=== PATIENT | male | born 1950 | race Caucasian/White ===

== ENCOUNTER 2018-03-04 11:30 | Inpatient (IN) | payer BC, MEDICARE ==
[~2018-03-04] VITALS: Ht 182.9 cm; Wt 110.7 kg
[2018-03-04 11:51] LABS: BASOPHILS # (AUTO) 0.03 x10^3/uL (0-0.1); BASOPHILS % (AUTO) 0 % (0-1); EOSINOPHILS # (AUTO) 0.08 x10^3/uL (0-0.4); EOSINOPHILS % (AUTO) 1 % (1-7); HCT (SEDRATE) 44.9 % (39.2-51.8); LYMPHOCYTES # (AUTO) 2.33 x10^3/uL (1-3.4); LYMPHOCYTES % (AUTO) 30 % (22-44); MD NO; MEAN CORPUSCULAR HEMOGLOBIN 30.2 pg (27.5-34.5); MEAN CORPUSCULAR HGB CONC 33.5 g/dL (33.2-36.2); MEAN CORPUSCULAR VOLUME 89.9 fL (81-97); MONOCYTES # (AUTO) 0.56 x10^3/uL (0.2-0.8); MONOCYTES % (AUTO) 7 % (2-9); NEUTROPHILS # (AUTO) 4.78 x10^3/uL (1.8-6.8); NEUTROPHILS % (AUTO) 61 % (42-75); PLATELET COUNT 198 x10^3/uL (130-400); RED BLOOD COUNT 5.06 x10^6/uL (4.38-5.82); RED CELL DISTRIBUTION WIDTH 12.9 % (9.4-14.8)
[2018-03-04 11:55] LABS: MICROSCOPIC NOT IND
[2018-03-04 12:17] LABS: ANION GAP 6 mmol/L (5-15); CALCIUM 8.9 mg/dL (8.5-10.1); CHLORIDE 111 mmol/L (98-107); CREATININE 1.31 mg/dL (0.7-1.3)
[2018-03-04 12:48] LABS: INTERNATIONAL NORMALIZED RATIO 0.99 (0.93-1.1); PROTHROMBIN TIME 10.3 Seconds (9.6-11.5)
[2018-03-07] MEDS ORDERED: LACTATED RINGERS 1,000 ML IV SCH (06:52)
[2018-03-07] MEDS ORDERED: FAMOTIDINE 20 MG TABLET PO ONE (07:30)
[2018-03-07] MEDS ORDERED: DIAZEPAM 5 MG TABLET PO ONE (07:30)
[2018-03-07] MEDS ORDERED: METOCLOPRAMIDE 10MG TABLET PO ONE (07:30)
[2018-03-07] MEDS ORDERED: GABAPENTIN 300 MG CAPSULE PO ONE (07:30)
[2018-03-07] MEDS ORDERED: TAMSULOSIN 0.4 MG CAP.ER.24H PO ONE (07:30)
[2018-03-07] MEDS ORDERED: FENTANYL PF 250 MCG/5ML ONE (08:16)
[2018-03-07] MEDS ORDERED: PROPOFOL 100 ML ONE ×2 (08:17→10:37)
[2018-03-07] MEDS ORDERED: SUFentanil 50 MCG/ML, 2ML ONE (08:17)
[2018-03-07] MEDS ORDERED: BUPIVACAINE/PF-EPI 0.5% 1:200K ONE (09:00)
[2018-03-07] MEDS ORDERED: VANCOMYCIN 1,000 MG ONE (09:00)
[2018-03-07] MEDS ORDERED: THROMBIN 20,000 UNIT VIAL TP ONE (09:00)
[2018-03-07] MEDS ORDERED: TRANEXAMIC ACID 100 MG/ML, 10ML ONE ×2 (09:00)
[2018-03-07] MEDS ORDERED: BACITRACIN 50,000 UNIT ONE (09:00)
[2018-03-07] MEDS ORDERED: KETAMINE 10 MG/ML, 20ML ONE (09:07)
[2018-03-07] MEDS ORDERED: SUFentanil 50 MCG/ML, 5ML ONE (09:07)
[2018-03-07] MEDS ORDERED: ROCURONIUM 10 MG/ML,10ML ONE (09:17)
[2018-03-07] MEDS ORDERED: LIDOCAINE-MPF 2% ,5ML ONE (09:17)
[2018-03-07] MEDS ORDERED: SUCCINYLCHOLINE 20 MG/ML, 10ML ONE (09:17)
[2018-03-07] MEDS ORDERED: DEXAMETHASONE 4 MG/ML, 1ML ONE (09:17)
[2018-03-07] MEDS ORDERED: CEFAZOLIN 1,000 MG ONE (09:17)
[2018-03-07] MEDS ORDERED: PROPOFOL 50 ML ONE ×3 (11:32→12:43)
[2018-03-07] MEDS: GLYCOPYRROLATE 0.2MG/1ML, 5ML IVPush PRN ×2 (13:51→13:55)
[2018-03-07] MEDS ORDERED: EPHEDRINE 50 MG/ML, 1ML ONE (13:59)
[2018-03-07] MEDS ORDERED: HYDROmorphone 1 MG/ML, 1ML IV PRN (14:00)
[2018-03-07] MEDS ORDERED: DIAZEPAM 5 MG/ML, 2ML IVPush PRN (14:00)
[2018-03-07] MEDS ORDERED: EPHEDRINE 50 MG/ML, 1ML IVPush PRN (14:00)
[2018-03-07] MEDS ORDERED: MORPHINE SULFATE 4 MG/ML, 1ML IVPush PRN (14:00)
[2018-03-07] MEDS ORDERED: ONDANSETRON 2MG/ML, 2ML IV PRN ×3 (14:00→17:30)
[2018-03-07] MEDS ORDERED: OXYcodone 5 MG/5 ML ORAL.SOL UDC PO PRN ×2 (14:00)
[2018-03-07] MEDS ORDERED: FENTANYL PF 100 MCG/2ML IV PRN ×2 (14:00)
[2018-03-07] MEDS ORDERED: PROMETHAZINE 25 MG/ML, 1ML IV PRN (14:00)
[2018-03-07] MEDS ORDERED: LABETALOL 5MG/ML, 20ML IV PRN ×2 (14:00→17:30)
[2018-03-07] MEDS ORDERED: ALBUTEROL SULFATE 2.5 MG/3 ML NPPB PRN (14:00)
[2018-03-07] MEDS ORDERED: OXYcodone 5 MG/5 ML ORAL.SOL UDC ONE (15:29)
[2018-03-07] MEDS ORDERED: FENTANYL PF 100 MCG/2ML ONE (15:42)
[2018-03-07] MEDS ORDERED: GLYCOPYRROLATE 0.4 MG/2 ML, 2ML ONE (15:42)
[2018-03-07] MEDS ORDERED: PROMETHAZINE 25 MG/ML, 1ML IM PRN (17:30)
[2018-03-07] MEDS ORDERED: DIAZEPAM 5 MG/ML, 2ML IV PRN (17:30)
[2018-03-07] MEDS ORDERED: DIPHENHYDRAMINE 50 MG/ML, 1ML IM PRN (17:30)
[2018-03-07] MEDS ORDERED: OXYcodone ORAL.CONC 20 MG/ML PO PRN (17:30)
[2018-03-07] MEDS ORDERED: BISACODYL 10 MG SUPP PR PRN (17:30)
[2018-03-07] MEDS ORDERED: DIPHENHYDRAMINE 50 MG CAPSULE PO PRN (17:30)
[2018-03-07] MEDS ORDERED: DIPHENHYDRAMINE 50 MG/ML, 1ML IVPush PRN (17:30)
[2018-03-07] MEDS ORDERED: morphine SULFATE 10 MG/ML, 1ML IV PRN (17:30)
[2018-03-07] MEDS ORDERED: LORazepam 1MG TABLET PO PRN (17:30)
[2018-03-07] MEDS ORDERED: MAGNESIUM HYDROXIDE 8%, 30ML UDC PO PRN (17:30)
[2018-03-07] MEDS ORDERED: SODIUM CHLORIDE 0.9% 1,000 ML IV PRN (17:30)
[2018-03-07] MEDS ORDERED: METHOCARBAMOL 1,000 MG in DEXTROSE 5% 100 ML IV ONE (18:00)
[2018-03-07 19:40] VITALS: BP 125/71
[2018-03-07] MEDS: D5%-0.9% NACL+KCL 20MEQ 1,000 ML IV SCH (20:09)
[2018-03-07] MEDS: CEFAZOLIN PMX 1GM/50ML 50 ML IVPB SCH (20:09)
[2018-03-07] MEDS ORDERED: ZOLPIDEM 5MG TABLET PO PRN (21:00)
[2018-03-08] VITALS (7 sets, daily range): BP systolic 103–133; BP diastolic 53–65
[2018-03-08] MEDS: CEFAZOLIN PMX 1GM/50ML 50 ML IVPB SCH (04:40)
[2018-03-08] MEDS: OXYcodone IR 5MG TABLET PO PRN ×4 (05:10→17:10)
[2018-03-08 05:33] LABS: BASOPHILS # (AUTO) 0.01 x10^3/uL (0-0.1); BASOPHILS % (AUTO) 0 % (0-1); EOSINOPHILS % (AUTO) 0 % (1-7); LYMPHOCYTES # (AUTO) 1.08 x10^3/uL (1-3.4); LYMPHOCYTES % (AUTO) 8 % (22-44); MD NO; MEAN CORPUSCULAR HEMOGLOBIN 30.3 pg (27.5-34.5); MEAN CORPUSCULAR VOLUME 89.1 fL (81-97); MEAN PLATELET VOLUME 8.4 fL (7.4-10.4); MONOCYTES # (AUTO) 0.69 x10^3/uL (0.2-0.8); MONOCYTES % (AUTO) 5 % (2-9); NEUTROPHILS # (AUTO) 12.09 x10^3/uL (1.8-6.8); NEUTROPHILS % (AUTO) 87 % (42-75); PLATELET COUNT 180 x10^3/uL (130-400); RED CELL DISTRIBUTION WIDTH 12.2 % (9.4-14.8)
[2018-03-08] MEDS: D5%-0.9% NACL+KCL 20MEQ 1,000 ML IV SCH ×2 (06:42→16:00)
[2018-03-08] MEDS: METHOCARBAMOL 750 MG in DEXTROSE 5% 100 ML IV SCH ×3 (06:42→23:12)
[2018-03-08] MEDS: SENNA/DOCUSATE TABLET PO SCH (09:37)
[2018-03-08] MEDS ORDERED: CALCIUM CARBONATE 500 MG HOMEMEDPO PRN (11:30)
[2018-03-08] MEDS: DEXAMETHASONE 4 MG/ML, 1ML IV PRN (19:12)
[2018-03-08] MEDS: DIAZEPAM 5 MG TABLET PO PRN (22:09)
[2018-03-09 03:06] VITALS: BP 114/65
[2018-03-09 04:39] LABS: MEAN CORPUSCULAR HEMOGLOBIN 29.9 pg (27.5-34.5); MEAN CORPUSCULAR HGB CONC 33.6 g/dL (33.2-36.2); MEAN PLATELET VOLUME 8.2 fL (7.4-10.4); PLATELET COUNT 164 x10^3/uL (130-400); RED BLOOD COUNT 4.58 x10^6/uL (4.38-5.82); RED CELL DISTRIBUTION WIDTH 12.8 % (9.4-14.8)
[2018-03-09 05:50] LABS: BASOPHILS # (AUTO) 0.03 x10^3/uL (0-0.1); BASOPHILS % (AUTO) 0 % (0-1); EOSINOPHILS % (AUTO) 0 % (1-7); LYMPHOCYTES % (AUTO) 8 % (22-44); MD SCAN; MONOCYTES # (AUTO) 1.07 x10^3/uL (0.2-0.8); MONOCYTES % (AUTO) 7 % (2-9); NEUTROPHILS # (AUTO) 13.36 x10^3/uL (1.8-6.8); NEUTROPHILS % (AUTO) 85 % (42-75)
[2018-03-09] MEDS: D5%-0.9% NACL+KCL 20MEQ 1,000 ML IV SCH ×3 (06:00→22:38)
[2018-03-09 06:56] VITALS: BP 111/66
[2018-03-09] MEDS: OXYcodone IR 5MG TABLET PO PRN ×3 (07:02→17:49)
[2018-03-09] MEDS: METHOCARBAMOL 750 MG in DEXTROSE 5% 100 ML IV SCH ×3 (07:02→22:37)
[2018-03-09] MEDS: SENNA/DOCUSATE TABLET PO SCH (07:52)
[2018-03-09 13:15] VITALS: BP 110/64
[2018-03-09 19:07] VITALS: BP 109/61
[2018-03-10 01:50] VITALS: BP 124/71
[2018-03-10] MEDS: METHOCARBAMOL 750 MG TABLET PO SCH ×3 (02:50→18:28)
[2018-03-10] MEDS: DEXAMETHASONE 4 MG/ML, 1ML IV PRN (02:50)
[2018-03-10 04:59] LABS: BASOPHILS # (AUTO) 0.04 x10^3/uL (0-0.1); BASOPHILS % (AUTO) 0 % (0-1); EOSINOPHILS # (AUTO) 0.02 x10^3/uL (0-0.4); EOSINOPHILS % (AUTO) 0 % (1-7); LYMPHOCYTES # (AUTO) 1.28 x10^3/uL (1-3.4); LYMPHOCYTES % (AUTO) 9 % (22-44); MD NO; MEAN CORPUSCULAR HGB CONC 33.7 g/dL (33.2-36.2); MEAN CORPUSCULAR VOLUME 89.1 fL (81-97); MEAN PLATELET VOLUME 8.2 fL (7.4-10.4); MONOCYTES # (AUTO) 0.85 x10^3/uL (0.2-0.8); MONOCYTES % (AUTO) 6 % (2-9); NEUTROPHILS # (AUTO) 12.23 x10^3/uL (1.8-6.8); NEUTROPHILS % (AUTO) 85 % (42-75); PLATELET COUNT 159 x10^3/uL (130-400); RED BLOOD COUNT 4.35 x10^6/uL (4.38-5.82); RED CELL DISTRIBUTION WIDTH 13.1 % (9.4-14.8)
[2018-03-10 07:54] VITALS: BP 127/62
[2018-03-10] MEDS: SENNA/DOCUSATE TABLET PO SCH (08:20)
[2018-03-10] MEDS: D5%-0.9% NACL+KCL 20MEQ 1,000 ML IV SCH ×2 (12:18→21:54)
[2018-03-10 15:10] VITALS: BP 131/74
[2018-03-10 19:55] VITALS: BP 129/75
[2018-03-11] MEDS: OXYcodone IR 5MG TABLET PO PRN ×3 (00:13→14:55)
[2018-03-11] MEDS: DIAZEPAM 5 MG TABLET PO PRN (00:13)
[2018-03-11] MEDS: METHOCARBAMOL 750 MG TABLET PO SCH ×2 (02:23→10:00)
[2018-03-11 02:59] VITALS: BP 121/65
[2018-03-11] MEDS: D5%-0.9% NACL+KCL 20MEQ 1,000 ML IV SCH (07:38)
[2018-03-11 07:39] VITALS: BP 145/74
[2018-03-11] MEDS: SENNA/DOCUSATE TABLET PO SCH (07:42)
[2018-03-11] MEDS: CALCIUM CARBONATE 500 MG TAB.CHEW PO PRN ×2 (10:34→14:42)
[2018-03-11] MEDS ORDERED: METH750T87 PO (11:18)
[2018-03-11] MEDS ORDERED: OXYC5CAP2 PO (11:18)
[2018-03-11] MEDS ORDERED: CEPH-368 PO (11:18)
[2018-03-11 12:59] VITALS: BP 132/85
== END 2018-03-11 15:50 | disposition home or self-care (01) | DRG 460 ==
LOC: ORIP 03-07 06:41 → EDSTATUS 03-07 09:00 → 4NOR 03-07 16:22 → DCLOUNGE 03-11 15:32
PROVIDERS: ADMIT Orthopaedic Surgery Orthopaedic Surgery of the Spine; ATTEND Orthopaedic Surgery Orthopaedic Surgery of the Spine
PROC: 0SG30AJ Fusion of Lumbosacral Joint with Interbody Fusion Device, Posterior Approach, Anterior Column, Open Approach (ICD-10-PCS; 2018-03-07)
PROC: 01NB0ZZ Release Lumbar Nerve, Open Approach (ICD-10-PCS; 2018-03-07)
PROC: 4A11X4G Monitoring of Peripheral Nervous Electrical Activity, Intraoperative, External Approach (ICD-10-PCS; 2018-03-07)
PROC: 07DR3ZZ Extraction of Iliac Bone Marrow, Percutaneous Approach (ICD-10-PCS; 2018-03-07)
PROC: 0SG00AJ Fusion of Lumbar Vertebral Joint with Interbody Fusion Device, Posterior Approach, Anterior Column, Open Approach (ICD-10-PCS; principal; 2018-03-07 09:00)
DX: M43.17 Spondylolisthesis, lumbosacral region (principal); M48.07 Spinal stenosis, lumbosacral region; M51.17 Intervertebral disc disorders with radiculopathy, lumbosacral region
CPT/HCPCS: 36415; 72100; J3490; 71046; 80048; 81003; 85025; 85610; 85651; 85730; 93005; C1713; J0690; J1100; J2270; J2704; J3010; J3370; C1760; C1762; C1763; C9362; J0330; J2800; J3480; J7120

== ENCOUNTER → 2019-07-31 | Outpatient (CLI) | payer BC, MEDICARE ==
[~2019-07-31] MED LIST: CEPH-368 PO; METH750T87 PO; OXYC5CAP2 PO; RIVA20TA PO
[2019-07-31 16:46] LABS: BASOPHILS # (AUTO) 0.03 x10^3/uL (0-0.1); BASOPHILS % (AUTO) 0 % (0-1); EOSINOPHILS % (AUTO) 3 % (1-7); LYMPHOCYTES # (AUTO) 2.86 x10^3/uL (1-3.4); LYMPHOCYTES % (AUTO) 32 % (22-44); MD NO; MEAN CORPUSCULAR HEMOGLOBIN 30.8 pg (27.5-34.5); MEAN CORPUSCULAR HGB CONC 32.8 g/dL (33.2-36.2); MEAN CORPUSCULAR VOLUME 93.8 fL (81-97); MEAN PLATELET VOLUME 8.2 fL (7.4-10.4); MONOCYTES # (AUTO) 0.64 x10^3/uL (0.2-0.8); MONOCYTES % (AUTO) 7 % (2-9); NEUTROPHILS # (AUTO) 5.02 x10^3/uL (1.8-6.8); NEUTROPHILS % (AUTO) 57 % (42-75); PLATELET COUNT 199 x10^3/uL (130-400); RED BLOOD COUNT 4.68 x10^6/uL (4.38-5.82); RED CELL DISTRIBUTION WIDTH 13.8 % (9.4-14.8)
[2019-07-31 16:53] LABS: INTERNATIONAL NORMALIZED RATIO 1.34 (0.93-1.1); PROTHROMBIN TIME 13.9 Seconds (9.6-11.5)
[2019-07-31 16:54] LABS: ALANINE AMINOTRANSFERASE 26 U/L (12-78); ALBUMIN 3.5 g/dL (3.4-5.0); ANION GAP 7 mmol/L (5-15); CALCIUM 8.5 mg/dL (8.5-10.1); CHLORIDE 114 mmol/L (98-107); CREATININE 1.42 mg/dL (0.7-1.3)
[2019-07-31 16:57] LABS: ALKALINE PHOSPHATASE 104 U/L (45-117); BILIRUBIN,TOTAL 0.5 mg/dL (0.2-1.0); TOTAL PROTEIN 7.1 g/dL (6.4-8.2)
[2019-07-31 17:05] LABS: HEMOGLOBIN A1C 4.9 % (4.2-6.3)
[2019-07-31 19:19] LABS: HCT (SEDRATE) 43.9 % (39.2-51.8)
== END | disposition home or self-care (01) ==
LOC: STAR 15:47
PROVIDERS: ATTEND Orthopaedic Surgery Orthopaedic Surgery of the Spine
DX: Z01.811 Encounter for preprocedural respiratory examination (principal); M47.814 Spondylosis without myelopathy or radiculopathy, thoracic region
CPT/HCPCS: 36415; 71046; 80053; 83036; 85025; 85610; 85651; 85730; 87081; 87147; 93005

== ENCOUNTER 2019-08-07 08:00 | Inpatient (IN) | payer BC, MEDICARE ==
[~2019-08-07] VITALS: Ht 182.9 cm; Wt 120.0 kg
[2019-08-14] MEDS ORDERED: LACTATED RINGERS 1,000 ML IV SCH (08:20)
[2019-08-14] MEDS ORDERED: VANCOMYCIN PMX 1GM/200ML 200 ML IV ONE (08:30)
[2019-08-14] MEDS ORDERED: OMEP-110 PO (08:45)
[2019-08-14] MEDS ORDERED: GABAPENTIN 300 MG CAPSULE ONE (09:55)
[2019-08-14] MEDS ORDERED: SCOPOLAMINE PATCH, 1.5MG PATCH.TD72 TD ONE (09:55)
[2019-08-14] MEDS ORDERED: TRANEXAMIC ACID 100 MG/ML, 10ML ONE ×2 (09:58)
[2019-08-14] MEDS ORDERED: KETOROLAC 60 MG/2 ML ONE (09:58)
[2019-08-14] MEDS ORDERED: VANCOMYCIN 1,000 MG ONE (09:59)
[2019-08-14] MEDS ORDERED: EPINEPHRINE 1 MG/ML, 1ML ONE (09:59)
[2019-08-14] MEDS ORDERED: ROPIvacaine/PF 0.2%, 20 ML ONE (09:59)
[2019-08-14] MEDS ORDERED: morphine SULFATE/PF 1 MG/ML, 10ML ONE (10:00)
[2019-08-14] MEDS ORDERED: FENTANYL PF 250 MCG/5ML ONE (10:01)
[2019-08-14] MEDS ORDERED: MIDAZOLAM 1 MG/ML, 2ML ONE (10:01)
[2019-08-14] MEDS ORDERED: DEXAMETHASONE 4 MG/ML, 1ML ONE (10:06)
[2019-08-14] MEDS ORDERED: ROCURONIUM 10MG/ML,5ML ONE (10:06)
[2019-08-14] MEDS ORDERED: PROPOFOL 10 MG/ML, 20ML ONE (10:06)
[2019-08-14] MEDS ORDERED: SUCCINYLCHOLINE 20 MG/ML, 10ML ONE (10:06)
[2019-08-14] MEDS ORDERED: CEFAZOLIN 1,000 MG ONE (10:26)
[2019-08-14] MEDS ORDERED: GLYCOPYRROLATE 0.2MG/1ML, 5ML ONE (10:26)
[2019-08-14] MEDS ORDERED: DIAZEPAM 5 MG/ML, 2ML IVPush PRN (11:00)
[2019-08-14] MEDS ORDERED: OXYcodone 5 MG/5 ML ORAL.SOL UDC PO PRN (11:00)
[2019-08-14] MEDS ORDERED: HYDROmorphone 2 MG/ML, 1ML IVPush PRN (11:00)
[2019-08-14] MEDS ORDERED: MIDAZOLAM 1 MG/ML, 2ML IV PRN (11:00)
[2019-08-14] MEDS ORDERED: EPHEDRINE 50 MG/ML, 1ML IVPush PRN (11:00)
[2019-08-14] MEDS ORDERED: ONDANSETRON ODT 8 MG PO PRN (11:00)
[2019-08-14] MEDS ORDERED: hydrALAzine 20 MG/ML, 1ML IV PRN (11:00)
[2019-08-14] MEDS ORDERED: LABETALOL 5MG/ML, 20ML IV PRN (11:00)
[2019-08-14] MEDS ORDERED: HALOPERIDOL 5 MG/ML IV PRN (11:00)
[2019-08-14] MEDS ORDERED: PROMETHAZINE 12.5 MG SUPP PR PRN (11:00)
[2019-08-14] MEDS ORDERED: ALBUTEROL SULFATE 2.5 MG/3 ML NPPB PRN (11:00)
[2019-08-14] MEDS ORDERED: MEPERIDINE/PF 25MG/ML,1ML IVPush PRN (11:00)
[2019-08-14] MEDS ORDERED: ONDANSETRON 2MG/ML, 2ML IV PRN (11:00)
[2019-08-14] MEDS ORDERED: PROMETHAZINE 25 MG/ML, 1ML IV PRN (11:00)
[2019-08-14] MEDS ORDERED: ONDANSETRON 2MG/ML, 2ML ONE ×2 (11:30)
[2019-08-14] MEDS ORDERED: SUGAMMADEX 200 MG/2 ML IVPush ONE (11:30)
[2019-08-14] MEDS ORDERED: FENTANYL PF 100 MCG/2ML ONE ×2 (11:49→12:38)
[2019-08-14] MEDS ORDERED: ZOLPIDEM 5MG TABLET PO PRN (12:30)
[2019-08-14] MEDS ORDERED: DIAZEPAM 5 MG TABLET PO PRN (12:30)
[2019-08-14] MEDS ORDERED: LORazepam 2 MG/ML, 1ML IVPush PRN (12:30)
[2019-08-14] MEDS ORDERED: morphine SULFATE 10 MG/ML, 1ML IVPush PRN (12:30)
[2019-08-14] MEDS ORDERED: PROMETHAZINE 25 MG/ML, 1ML IM PRN (12:30)
[2019-08-14] MEDS ORDERED: MAGNESIUM HYDROXIDE 8%, 30ML UDC PO PRN (12:30)
[2019-08-14] MEDS ORDERED: ONDANSETRON 2MG/ML, 2ML IVPush PRN (12:30)
[2019-08-14] MEDS ORDERED: BISACODYL 10 MG SUPP PR PRN (12:30)
[2019-08-14] MEDS ORDERED: SODIUM CHLORIDE 0.9% 1,000ML IVBOLUS PRN (12:30)
[2019-08-14] MEDS ORDERED: OXYcodone IR 5MG TABLET PO PRN ×3 (12:30)
[2019-08-14] MEDS ORDERED: DEXAMETHASONE 4 MG TABLET JT PRN (12:30)
[2019-08-14] MEDS ORDERED: SENNA/DOCUSATE TABLET PO PRN (12:30)
[2019-08-14] MEDS ORDERED: DIPHENHYDRAMINE 50 MG CAPSULE PO PRN (12:30)
[2019-08-14] MEDS ORDERED: DIAZEPAM 5 MG/ML, 2ML ONE (12:38)
[2019-08-14] MEDS: FENTANYL PF 100 MCG/2ML IV PRN ×2 (12:40→12:45)
[2019-08-14] MEDS ORDERED: METHOCARBAMOL 1,000 MG in DEXTROSE 5% 100 ML IV ONE (13:00)
[2019-08-14 13:50] VITALS: BP 122/68
[2019-08-14] MEDS: D5%-LACTATED RINGERS 1,000 ML IV SCH (16:07)
[2019-08-14] MEDS: CEFAZOLIN PMX 2GM/50ML 50 ML IVPB SCH (18:00)
[2019-08-14 20:39] VITALS: BP 120/70
[2019-08-14] MEDS: METHOCARBAMOL 1,000 MG in DEXTROSE 5% 100 ML IV SCH (21:13)
[2019-08-15 01:23] VITALS: BP 101/60
[2019-08-15] MEDS: CEFAZOLIN PMX 2GM/50ML 50 ML IVPB SCH (02:29)
[2019-08-15] MEDS: D5%-LACTATED RINGERS 1,000 ML IV SCH ×3 (02:30→22:00)
[2019-08-15 03:19] LABS: BASOPHILS # (AUTO) 0.02 x10^3/uL (0-0.1); BASOPHILS % (AUTO) 0 % (0-1); EOSINOPHILS # (AUTO) 0.17 x10^3/uL (0-0.4); EOSINOPHILS % (AUTO) 1 % (1-7); LYMPHOCYTES # (AUTO) 1.43 x10^3/uL (1-3.4); LYMPHOCYTES % (AUTO) 10 % (22-44); MD NO; MEAN CORPUSCULAR HEMOGLOBIN 31.1 pg (27.5-34.5); MEAN CORPUSCULAR HGB CONC 33.2 g/dL (33.2-36.2); MEAN CORPUSCULAR VOLUME 93.7 fL (81-97); MEAN PLATELET VOLUME 8.3 fL (7.4-10.4); MONOCYTES # (AUTO) 0.87 x10^3/uL (0.2-0.8); MONOCYTES % (AUTO) 6 % (2-9); NEUTROPHILS # (AUTO) 11.56 x10^3/uL (1.8-6.8); NEUTROPHILS % (AUTO) 82 % (42-75); PLATELET COUNT 195 x10^3/uL (130-400); RED CELL DISTRIBUTION WIDTH 12.6 % (9.4-14.8)
[2019-08-15] MEDS: RIVAROXABAN 20 MG TABLET PO SCH (05:16)
[2019-08-15] MEDS: METHOCARBAMOL 1,000 MG in DEXTROSE 5% 100 ML IV SCH ×3 (05:16→20:45)
[2019-08-15 05:25] VITALS: BP 115/72
[2019-08-15] MEDS ORDERED: RIVAROXABAN 10 MG TABLET PO SCH (06:00)
[2019-08-15 08:48] VITALS: BP 121/64
[2019-08-15 12:22] VITALS: BP 131/65
[2019-08-15] MEDS ORDERED: OXYC5CAP2 PO (17:44)
[2019-08-15] MEDS ORDERED: DIAZ5TAB PO (17:45)
[2019-08-15] MEDS ORDERED: CEPH-368 PO (17:45)
[2019-08-15 20:52] VITALS: BP 125/66
[2019-08-16 02:56] VITALS: BP 125/61
[2019-08-16] MEDS: METHOCARBAMOL 1,000 MG in DEXTROSE 5% 100 ML IV SCH (05:58)
[2019-08-16] MEDS: RIVAROXABAN 20 MG TABLET PO SCH (05:58)
[2019-08-16 08:00] VITALS: BP 109/59
[2019-08-16] MEDS: D5%-LACTATED RINGERS 1,000 ML IV SCH (08:00)
== END 2019-08-16 10:15 | disposition home or self-care (01) | DRG 470 ==
LOC: ORIP 08-14 08:05 → 4NE 08-14 13:42
PROVIDERS: ADMIT Orthopaedic Surgery Orthopaedic Surgery of the Spine; ATTEND Orthopaedic Surgery Orthopaedic Surgery of the Spine
PROC: 0SR904Z Replacement of Right Hip Joint with Ceramic on Polyethylene Synthetic Substitute, Open Approach (ICD-10-PCS; principal; 2019-08-14 10:15)
DX: M16.11 Unilateral primary osteoarthritis, right hip (principal); Z86.718 Personal history of other venous thrombosis and embolism; K21.9 Gastro-esophageal reflux disease without esophagitis; Z88.6 Allergy status to analgesic agent; Z88.8 Allergy status to other drugs, medicaments and biological substances
CPT/HCPCS: 36415; 72170; J7121; 85025; 86850; 86900; G0378; J0171; J0690; J1100; J1885; J2250; J2274; J2405; J2704; J2795; J3010; J3360; J3370; C1776; J0330; J2800; J7120